=== PATIENT | male | born 1955 | race Caucasian/White ===

== ENCOUNTER 2017-05-12 23:12 | Emergency (ER) | payer SELFPAY ==
[~2017-05-12] VITALS: Ht 185.4 cm; Wt 113.4 kg
[2017-05-12 23:39] VITALS: BP 161/76
[2017-05-13 00:02] LABS: Basophils # (auto) 0.1 uL; Basophils % (auto) 1.2 % (0.0-2.0); Eosinophils # (auto) 0.3 uL; Hemoglobin 16.4 g/dL (13.5-17.5); Lymphocytes # (auto) 3.1 uL; Lymphocytes % (auto) 28.7 % (10.0-50.0); Mean Corpuscular Hemoglobin 30.8 pg (28.0-32.0); Mean Corpuscular Hgb Conc. 33.4 g/dL (32.0-36.0); Mean Corpuscular Volume 92.3 fL (80.0-100.0); Mean Platelet Volume 8.1 fL (7.4-10.4); Neutrophils # (auto) 6.2 uL; Neutrophils % (auto) 58.1 % (37.0-80.0); Platelet Count (auto) 288 10^3/uL (140-450); Red Cell Distribution Width 11.7 % (11.6-16.0); White Blood Cell 10.7 10^3/uL (4.4-10.8)
[2017-05-13 00:21] LABS: Albumin 2.9 g/dL (3.4-5.0); BUN/Creatinine Ratio 9.9; Calcium 8.9 mg/dL (8.5-10.1)
[2017-05-13 00:24] LABS: Bilirubin, Total 0.4 mg/dL (0.2-1.0); Total Protein 7.6 g/dL (6.4-8.2)
[2017-05-13 00:30] LABS: B-Type Natriuretic Peptide 18.77 pg/mL (0-100)
[2017-05-13 00:46] LABS: Temperature: 24.1 C (20.0-25.0)
== END 2017-05-13 06:31 | disposition left against medical advice (07) ==
LOC: ER 23:13
DX: M79.89 Other specified soft tissue disorders (principal); M79.604 Pain in right leg
CPT/HCPCS: 36415; 80053; 83880; 85025